=== PATIENT | female | born 1975 | race American Indian/Alaskan Native ===

== ENCOUNTER 2019-01-14 07:13 | Day surgery (SDC) | payer MEDICARE ==
[~2019-01-14 07:13] MED LIST: BUPIVACAINE-EPINEPHRINE/PF 0.5%-1:200,000 (30 ML) VIAL INFILTRATI ONE; HEPARIN 10,000 UNITS/10 ML VIAL IV ONE; LIDOCAINE 1%/EPINEPHRINE 1:100,000 VIAL (20 ML) INFILTRATI ONE; SODIUM BICARBONATE 2 MEQ/2 ML SYRINGE IV ONE; SODIUM CHLORIDE 0.9% 500 ML IVPB IRRIGATION ONE
[2019-01-14] MEDS ORDERED: HEPARIN 10,000 UNITS/10 ML VIAL ONE (07:47)
[2019-01-14] MEDS ORDERED: LIDOCAINE 1%/EPINEPHRINE 1:100,000 VIAL (20 ML) INFILTRATI ONE (07:48)
[2019-01-14] MEDS ORDERED: SODIUM CHLORIDE 0.9% 500 ML 500 ML ONE (07:48)
[2019-01-14] MEDS ORDERED: BUPIVACAINE-EPINEPHRINE/PF 0.5%-1:200,000 (10 ML) VIAL INFILTRATI ONE (07:49)
[2019-01-14] MEDS ORDERED: SODIUM BICARBONATE 2 MEQ/2 ML SYRINGE ONE (07:49)
--- NOTE | 2019-01-14 07:51 | Anesthesia Consultation ---
Anesthesia Consult and Med Hx Date of service: 01/14/19 - Airway Anesthetic Teeth Evaluation: Good, Caps ROM Head & Neck: Adequate Mental/Hyoid Distance: Adequate Mallampati Class: Class II Intubation Access Assessment: Probably Good - Pre-Operative Health Status ASA Pre-Surgery Classification: ASA3 Proposed Anesthetic Plan: General - Pulmonary Hx Smoking: No Hx Sleep Apnea: No - Cardiovascular System Hx Hypertension: Yes Hx Heart Attack/AMI: No (Had negative cardiac w/u approx 3 months ago) Hx Heart Murmur: Yes (??) - Central Nervous System Hx Psychiatric Problems: No - Endocrine Hx Renal Disease: Yes (M-W-. Last HD yesterday) Hx End Stage Renal Disease: Yes (VAS CATH OR PERMACATH ???) - Hematic Hx Anemia: No Hx Sickle Cell Disease: No - Other Systems Hx Alcohol Use: Yes (OCC. WINE) Hx Substance Use: No Hx Cancer: No
--- NOTE | 2019-01-14 07:53 | Anesthesia Day of Surgery ---
Anesthesia Day of Surgery - Day of Surgery Patient Examined: Yes Patient H&P Reviewed: Yes Patient is NPO: Yes Beta Blockers: Yes
[2019-01-14] MEDS ORDERED: SODIUM CHLORIDE 0.9% 1000 ML 1,000 ML IV SCH (08:00)
[2019-01-14] MEDS ORDERED: ONDANSETRON 4 MG/2 ML INJ IV PRN (08:00)
[2019-01-14] MEDS ORDERED: ceFAZolin/STERILE WATER 2 GM/20 ML SYRINGE IV NR (09:30)
[2019-01-14] MEDS ORDERED: fentaNYL 100 MCG/2 ML INJ ONE (10:25)
[2019-01-14] MEDS ORDERED: PROPOFOL 200 MG/20 ML VIAL IV ONE (10:25)
[2019-01-14] MEDS ORDERED: LIDOCAINE MPF (2%) 20 MG/1 ML VIAL 5 ML ONE (10:26)
[2019-01-14] MEDS ORDERED: ONDANSETRON 4 MG/2 ML INJ ONE (10:26)
[2019-01-14] MEDS ORDERED: dexAMETHasone 20 MG/5 ML VIAL ONE (10:26)
[2019-01-14] MEDS ORDERED: HEPARIN 10,000 UNITS/10 ML VIAL IV ONE (11:42)
[2019-01-14] MEDS ORDERED: SODIUM CHLORIDE 0.9% 500 ML IVPB IRRIGATION ONE (11:42)
[2019-01-14] MEDS ORDERED: THROMBIN (RECOMBINANT) 5,000 UNIT VIAL TP ONE ×2 (12:15→12:17)
[2019-01-14] MEDS ORDERED: GELATIN SPONGE SIZE 100 TP ONE ×2 (12:15→12:17)
[2019-01-14] MEDS ORDERED: PROTAMINE SULFATE 50 MG/5 ML INJ IV ONE (12:41)
[2019-01-14] MEDS ORDERED: PROTAMINE SULFATE 50 MG/5 ML INJ ONE (12:42)
[2019-01-14] MEDS ORDERED: ePHEDrine SULFATE 50 MG/1 ML INJ ONE (12:51)
--- NOTE | 2019-01-14 13:09 | Post Operative Note ---
Pre-op diagnosis: ESRD Post-op diagnosis: same Procedure: Right Arm AV Graft Insertion Anesthesia: GETA Surgeon: CAMI MOLINA Estimated blood loss: other (25ml) Pathology: none Condition: stable Disposition: PACU
--- NOTE | 2019-01-14 13:13 | Short Stay Summary ---
Short Stay Documentation Date of service: 01/14/19 - History H&P: obtained from office Past Medical History: ESRD - Allergies and Medications Current Medications: Allergies No Known Allergies Allergy (Unverified 01/11/19 13:04) Home Medications Medication Instructions Recorded Confirmed Last Taken Type Medroxyprogesterone Acetate 1 syr IM [id number] 01/11/19 01/14/19 10/26/18 09:00 History carvediloL [Coreg] 12.5 mg PO BID 01/11/19 01/14/19 01/14/19 08:00 History oxyCODONE /ACETAMINOPHEN 10 mg PO PRN 01/11/19 01/11/19 Unknown History Active Medications Cefazolin Sodium (Ancef/Sterile Water 2 Gm/20 Ml) 2 gm IV PREOP NR Stop: 01/14/19 20:00 Fentanyl (Sublimaze) 50 mcg IV Q5MIN PRN PRN Reason: Pain , Severe (7-10) Stop: 01/14/19 17:00 Sodium Chloride (Nacl 0.9% 1000 Ml) 1,000 mls @ 42 mls/hr IV DIRECT OLIVER Last Admin: 01/14/19 09:05 Dose: 42 mls/hr Documented by: Ondansetron HCl (Zofran) 4 mg IV ONCE PRN PRN Reason: Nausea And Vomiting Stop: 01/14/19 20:00 Oxycodone HCl (Roxicodone) 5 mg PO Q4H PRN PRN Reason: Pain, Moderate (4-6) - Physical exam General appearance: no acute distress Extremities: no ischemia - Hospital course Hospital course: the patient was taken to the operating room and had a right arm av graft insertion performed. please refer to the operative note concerning details of the procedure. the patient tolerated the procedure well and was discharged home in stable condition. - Disposition Condition at discharge: Stable Disposition: DC-01 TO HOME OR SELFCARE - Discharge Diagnoses (1) ESRD (end stage renal disease) Status: Acute Short Stay Discharge Plan Follow up with: TASHA CONTRERAS MD [Primary Care Provider] - 7 Days
[2019-01-14] MEDS: fentaNYL 100 MCG/2 ML INJ IV PRN ×2 (13:20→13:33)
--- NOTE | 2019-01-14 13:41 | Operative Report ---
STAFF SURGEON: Dr. Eric Henry. PREOPERATIVE DIAGNOSIS: End-stage renal disease. POSTOPERATIVE DIAGNOSIS: End-stage renal disease. PROCEDURE PERFORMED: Right arm AV graft insertion. COMPLICATIONS: None. ESTIMATED BLOOD LOSS: 25 mL. ANESTHESIA: General. INDICATIONS FOR PROCEDURE: This is a 43-year-old female with end-stage renal disease, on hemodialysis via left arm AV fistula that over the years, had issues with significant aneurysmal degeneration and requiring the patient to require new access. The patient did not want catheter insertion and elected to undergo a new access in the subsequent arm. The patient was explained the risks, benefits and alternatives of procedure, expressed understanding and wished to proceed. DESCRIPTION OF PROCEDURE: After appropriate consent was obtained, the patient was brought back to the operating room and placed on the operating table in supine position with the right arm extended. The patient was given appropriate medication for general anesthesia. The right arm was prepped and draped in sterile fashion with ChloraPrep. Appropriate preoperative antibiotics were administered. Appropriate timeout was performed indicating the correct patient, procedure and site of procedure. We then began the operation by making a longitudinal incision in the antecubital fossa. This was carried through the subcutaneous tissue with a combination of blunt dissection and electrocautery. Dissection was continued through the bicipital aponeurosis and allowed to expose the brachial artery, which was found to be suitable for arterial inflow. This was exposed for appropriate distance both proximally and distally. I then proceeded to make a transverse incision near the axilla and this was carried through subcutaneous tissue with a combination of blunt dissection and electrocautery. Dissection was continued through the fascia overlying the axillary neurovascular bundle. The axillary vein was identified and was a little small, but was thought to be suitable for venous outflow. We then proceeded to expose the vein, both proximally and distally for appropriate distance. A subcutaneous tunnel was then made between the 2 incision sites bringing through a 4-7 mm Propaten graft. The patient was given 5000 units of unfractionated heparin. After appropriate timeout elapsed, the vascular clamps were placed on the brachial artery, both proximally and distally. A longitudinal arteriotomy was made with a #11 blade and extended with Claudio scissors. The graft was appropriately spatulated and an end-to-side anastomosis was performed with a running 6-0 Prolene suture. Once complete, flow was reestablished through the graft, we had a nice pulsatile flow. The graft was cut to appropriate length. Vascular clamps were placed on the axillary vein, both proximally and distally. The graft was appropriately spatulated and then proceeded to perform the end-to-side anastomosis with a running 5-0 Prolene suture. Once complete, flow was established through the graft, we had a nice palpable thrill. The patient was given protamine for heparinization reversal. We then looked to obtain hemostasis along our suture lines and we obtained with hemostatic agents. Once we were satisfied with hemostasis, we then proceeded to close the wounds with deep subcutaneous layer with interrupted 3-0 PDS and the skin was approximated with mike. Appropriate dressing was placed. The patient tolerated the procedure well, emerged from the general anesthesia, was extubated in the operating room and sent to recovery in stable condition. All sponge, instrument and needle counts were correct at completion of the operation. JOB# [id number] [facility]
[2019-01-14] MEDS ORDERED: oxyCODONE 5 MG TAB PO PRN (14:00)
[2019-01-14 14:13] VITALS: BP 154/86
--- NOTE | 2019-01-14 21:30 | Post Anesthesia Evaluation ---
- Post Anesthesia Evaluation Patient Participated: Yes Airway Patent: Yes Stable Respiratory Function: Yes Nausea/Vomiting: No Temp > 96.8F: Yes Pain Manageable: Yes Adequeate Hydration: Yes Anesthesia Complications: No Block Receding Appropriately: Not Applicable Patient on Ventilator: No
== END 2019-01-14 14:45 | disposition home or self-care (01) ==
LOC: OR 07:13
PROVIDERS: ATTEND Surgery Vascular Surgery
DX: I12.0 Hypertensive chronic kidney disease with stage 5 chronic kidney disease or end stage renal disease (principal); N18.6 End stage renal disease; G43.909 Migraine, unspecified, not intractable, without status migrainosus; E78.00 Pure hypercholesterolemia, unspecified; Z79.899 Other long term (current) drug therapy; Z99.2 Dependence on renal dialysis; Z72.89 Other problems related to lifestyle; Z98.890 Other specified postprocedural states
CPT/HCPCS: 36830; 82803; A4649; C1768; J1100; J1644; J2405; J2704; J2720; J3010; J7030; J7040

== ENCOUNTER 2019-03-04 06:03 | Day surgery (SDC) | payer MEDICARE ==
[2019-03-04] MEDS ORDERED: SODIUM CHLORIDE 0.9% 1000 ML 1,000 ML IV SCH (06:45)
[2019-03-04] MEDS ORDERED: BACTERIOSTATIC SODIUM CHLORIDE 0.9% 30 ML VIAL INFILTRATI ONE (06:49)
[2019-03-04] MEDS ORDERED: ceFAZolin/STERILE WATER 2 GM/20 ML SYRINGE IV NR (07:00)
--- NOTE | 2019-03-04 07:35 | Anesthesia Consultation ---
Anesthesia Consult and Med Hx Date of service: 03/04/19 - Airway Anesthetic Teeth Evaluation: Good ROM Head & Neck: Adequate Mental/Hyoid Distance: Adequate Mallampati Class: Class II Intubation Access Assessment: Good - Pulmonary Exam CTA: Yes - Cardiac Exam Cardiac Exam: RRR - Pre-Operative Health Status ASA Pre-Surgery Classification: ASA3 Proposed Anesthetic Plan: General - Cardiovascular System Hx Hypertension: Yes Hx Heart Murmur: Yes - Central Nervous System Hx Psychiatric Problems: No - Endocrine Hx Renal Disease: Yes Hx End Stage Renal Disease: Yes - Other Systems Hx Alcohol Use: Yes (OCC. WINE) Hx Cancer: No
--- NOTE | 2019-03-04 07:35 | Anesthesia Day of Surgery ---
Anesthesia Day of Surgery - Day of Surgery Patient Examined: Yes Patient H&P Reviewed: Yes Patient is NPO: Yes
[2019-03-04] MEDS ORDERED: HEPARIN 10,000 UNITS/10 ML VIAL ONE (07:40)
[2019-03-04] MEDS ORDERED: GELATIN SPONGE SIZE 100 TP ONE (07:41)
[2019-03-04] MEDS ORDERED: SODIUM CHLORIDE 0.9% 250ML 250 ML ONE (07:41)
[2019-03-04] MEDS ORDERED: THROMBIN (RECOMBINANT) 5,000 UNIT VIAL TP ONE ×2 (07:42→08:47)
[2019-03-04] MEDS ORDERED: PROTAMINE SULFATE 50 MG/5 ML INJ ONE (07:42)
[2019-03-04] MEDS ORDERED: FAMOTIDINE 20 MG TAB PO NR (08:00)
[2019-03-04] MEDS ORDERED: MIDAZOLAM 2 MG/2 ML INJ IV NR (08:00)
[2019-03-04] MEDS ORDERED: LIDOCAINE MPF (2%) 20 MG/1 ML VIAL 5 ML ONE (08:05)
[2019-03-04] MEDS ORDERED: PROPOFOL 200 MG/20 ML VIAL IV ONE (08:06)
[2019-03-04] MEDS ORDERED: fentaNYL 100 MCG/2 ML INJ ONE (08:06)
[2019-03-04] MEDS ORDERED: HEPARIN 10,000 UNITS/10 ML VIAL IV ONE (08:46)
[2019-03-04] MEDS ORDERED: SODIUM CHLORIDE 0.9% 250 ML IVPB IV ONE (08:47)
[2019-03-04] MEDS ORDERED: SODIUM CHLORIDE 0.9% IRR 1,500 ML BOTTLE IR ONE (08:48)
[2019-03-04] MEDS ORDERED: oxyCODONE /ACETAMINOPHEN 5-325MG TAB PO PRN (09:44)
--- NOTE | 2019-03-04 09:44 | Post Operative Note ---
Pre-op diagnosis: ESRD Post-op diagnosis: same Procedure: Left Arm AV Fistula Excision Anesthesia: GETA Surgeon: CAMI MOLINA Estimated blood loss: other (25ml) Pathology: none Condition: stable Disposition: PACU
[2019-03-04] MEDS ORDERED: ONDANSETRON 4 MG/2 ML INJ ONE (09:45)
[2019-03-04] MEDS ORDERED: dexAMETHasone 20 MG/5 ML VIAL ONE (09:45)
--- NOTE | 2019-03-04 09:48 | Short Stay Summary ---
Short Stay Documentation Date of service: 03/04/19 - History H&P: obtained from office Past Medical History: ESRD - Allergies and Medications Current Medications: Allergies tramadol Allergy (Verified 03/04/19 06:45) Itching Home Medications Medication Instructions Recorded Confirmed Last Taken Type Medroxyprogesterone Acetate 1 syr IM [id number] 01/11/19 03/04/19 01/24/19 History carvediloL [Coreg] 12.5 mg PO BID 01/11/19 03/04/19 03/04/19 07:15 History oxyCODONE [roxiCODONE] 5 mg PO Q4H PRN #20 tablet 01/14/19 03/04/19 02/18/19 Rx Active Medications Cefazolin Sodium (Ancef/Sterile Water 2 Gm/20 Ml) 2 gm IV PREOP NR Stop: 03/04/19 23:59 Famotidine (Pepcid) 20 mg PO PREOP NR Stop: 03/04/19 16:00 Last Admin: 03/04/19 07:48 Dose: 20 mg Documented by: Sodium Chloride (Nacl 0.9% 1000 Ml) 1,000 mls @ 42 mls/hr IV DIRECT OLIVER Last Admin: 03/04/19 07:00 Dose: 42 mls/hr Documented by: Midazolam HCl (Versed) 2 mg IV PREOP NR Stop: 03/04/19 23:59 Last Admin: 03/04/19 07:48 Dose: 2 mg Documented by: - Physical exam General appearance: no acute distress Lungs: Normal air movement Extremities: no ischemia - Hospital course Hospital course: the patient was taken to the operating room and had a left arm av fistula e xcision performed. please refer to the operative note concerning details of the procedure. the patient tolerated the procedure well and was discharged well in stable condition. - Disposition Condition at discharge: Stable Disposition: DC-01 TO HOME OR SELFCARE - Discharge Diagnoses (1) ESRD (end stage renal disease) on dialysis Status: Acute Short Stay Discharge Plan Follow up with: TASHA CONTRERAS MD [Primary Care Provider] - 7 Days
[2019-03-04] MEDS: HYDROmorphone 1 MG/1 ML INJ IV PRN ×2 (10:05→10:15)
[2019-03-04] MEDS ORDERED: HYDROmorphone 1 MG/1 ML INJ ONE (10:06)
--- NOTE | 2019-03-04 10:07 | Operative Report ---
STAFF SURGEON: Dr. Eric Henry. PREOPERATIVE DIAGNOSIS: End-stage renal disease. POSTOPERATIVE DIAGNOSIS: End-stage renal disease. PROCEDURE PERFORMED: Left arm AV fistula excision. COMPLICATIONS: None. ESTIMATED BLOOD LOSS: 25 mL. ANESTHESIA: General. INDICATIONS FOR PROCEDURE: This is a 43-year-old female with end-stage renal disease, on hemodialysis via right arm AV graft. She also has a left arm AV fistula that is still patent. 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 Therefore, it was felt appropriate to bring the patient to the operating room for excision of this pseudoaneurysm. The patient was explained the risks, benefits and alternatives of procedure, expressed understanding and wished to proceed. DESCRIPTION OF PROCEDURE: After appropriate consent was obtained, the patient was brought back to the operating room and placed on the operating table in supine position with the left arm extended. The patient was given appropriate medication for general anesthesia, had LMA placed without difficulty. Left arm was prepped and draped in usual sterile fashion with ChloraPrep. Appropriate preoperative antibiotics were administered. Appropriate timeout was performed indicating the correct patient, procedure, and site of the procedure. I then began the operation by making an elliptical incision in the left upper arm around the aneurysmal portion of the AV fistula. This was carried through the subcutaneous tissue with a combination of blunt dissection and electrocautery. The fistula was dissected off the bed of the biceps muscle and then proceeded to place hemostat clamps on both arterial and venous sides of the fistula. This was then transected. It was sent off the field to be discarded. We then proceeded to close both stumps with a running 4-0 Prolene sutures in 2 layers with horizontal mattress and running suture. Once complete, the clamps were removed. We then looked to obtain hemostasis along the wound bed, was obtained with electrocautery and assess for hemostasis. The wound bed was irrigated with saline solution and then proceeded to close the wound with a deep subcutaneous layer with interrupted 3-0 PDS and the skin was approximated with mike. Appropriate dressing was placed. The patient tolerated the procedure well, emerged from the general anesthesia, had LMA removed, and was sent to recovery in stable condition. All the sponges, instrument and needle counts were correct at completion of the operation. JOB# [id number] [facility]
[2019-03-04] MEDS ORDERED: ONDANSETRON 4 MG/2 ML INJ IV PRN (10:24)
[2019-03-04 11:18] VITALS: BP 158/78
== END 2019-03-04 11:25 | disposition home or self-care (01) ==
LOC: OR 06:03
PROVIDERS: ATTEND Surgery Vascular Surgery
DX: I12.0 Hypertensive chronic kidney disease with stage 5 chronic kidney disease or end stage renal disease (principal); N18.6 End stage renal disease; G43.909 Migraine, unspecified, not intractable, without status migrainosus; E78.00 Pure hypercholesterolemia, unspecified; T82.590A Other mechanical complication of surgically created arteriovenous fistula, initial encounter; Z79.899 Other long term (current) drug therapy; Z88.8 Allergy status to other drugs, medicaments and biological substances; Z99.2 Dependence on renal dialysis; Z72.89 Other problems related to lifestyle; Z98.890 Other specified postprocedural states; Y83.8 Other surgical procedures as the cause of abnormal reaction of the patient, or of later complication, without mention of misadventure at the time of the procedure; Y92.89 Other specified places as the place of occurrence of the external cause
CPT/HCPCS: 35011; 36415; 82803; 84703; A4649; J0690; J1100; J1170; J1644; J2250; J2405; J2704; J3010; J7030; J7050; J2720

== ENCOUNTER 2019-04-14 14:39 | Emergency (ER) | payer MEDICARE ==
--- NOTE | 2019-04-14 15:29 | Emergency Department Report ---
HPI - General Chief Complaint: Arrhythmia/Palpitations Time Seen by Provider: 04/14/19 15:04 - HPI HPI: 43-year-old -[place] female presents to the emergency department via EMS from her vascular surgeon's office with a complaint of a fast heart rate and possible SVT. She was at the office of Dr. Henry getting her right upper extremity dialysis access declotted. She was given some fentanyl and propofol and her heart rate went into the 150s and 160s. She has a history of SVT and apparently the patient was given 2 different doses of adenosine 6 mg. This caused her heart rate to go up into the 180s so EMS was called. The patient was then given 15 mg of labetalol with some transient decrease but her heart rate went back to about the 150s. She has end-stage renal disease on hemodialysis on Friday/Friday/Friday and did complete dialysis this morning. Her office coordinator is Dr. Lisa Macedo. Patient denies any shortness of breath or chest pain but does say that her chest "feels funny." ED Past Medical Hx - Past Medical History Hx Hypertension: Yes Hx Renal Disease: Yes (dialysis) Hx Headaches / Migraines: Yes ( MIGRAINES) Hx HIV: No - Surgical History Additional Surgical History: av graft - Social History Smoking Status: Former Smoker Substance Use Type: None - Medications Home Medications: Home Medications Medication Instructions Recorded Confirmed Last Taken Type Medroxyprogesterone Acetate 1 syr IM [id number] 01/11/19 03/04/19 01/24/19 History oxyCODONE /ACETAMINOPHEN [Percocet 2 tab PO Q6HR PRN #24 tablet 03/04/19 Unk nown Rx 5/325 mg] carvediloL [Coreg] 12.5 mg PO BID #60 04/14/19 Unknown Rx ED Review of Systems ROS: Stated complaint: SVT Other details as noted in HPI Comment: All other systems reviewed and negative Constitutional: denies: chills, fever Eyes: denies: eye pain, vision change ENT: denies: ear pain, throat pain Respiratory: denies: cough, shortness of breath Cardiovascular: palpitations. denies: edema Gastrointestinal: denies: abdominal pain, vomiting Genitourinary: denies: dysuria, discharge Musculoskeletal: denies: back pain, arthralgia Skin: denies: rash, lesions Neurological: denies: headache, weakness Physical Exam - Physical Exam Vital Signs: Vital Signs 04/14/19 14:53 Temperature 98.5 F Pulse Rate 155 H Respiratory 18 Rate Blood Pressure 162/90 O2 Sat by Pulse 100 Oximetry Physical Exam: GENERAL: The patient is well-developed well-nourished. HENT: Normocephalic. Atraumatic. Patient has moist mucous membranes. EYES: Extraocular motions are intact. NECK: Supple. Trachea is midline. CHEST/LUNGS: Clear to auscultation. There is no respiratory distress noted. There is a left-sided chest permacath. HEART/CARDIOVASCULAR: Regular. There is severe tachycardia with heart rate in 150s to 160s. There is no murmur. ABDOMEN: Abdomen is soft, nontender. Patient has normal bowel sounds. There is no abdominal distention. SKIN: Skin is warm and dry. NEURO: The patient is awake, alert, and oriented. The patient is cooperative. The patient has no focal neurologic deficits. Normal speech. MUSCULOSKELETAL: There is no tenderness or deformity. There is no evidence of acute injury. ED Course Vital Signs 04/14/19 14:53 Temperature 98.5 F Pulse Rate 155 H Respiratory 18 Rate Blood Pressure 162/90 O2 Sat by Pulse 100 Oximetry - Consultations Consultation #1: 04/14/19 18:59 I spoke with the information technology administrator on-call, Dr. Gaitan, regarding the patient's presentation with her SVT and her conversion back to a sinus rhythm with normal rate after calcium channel keith. He recommends the patient go up on her Coreg to 12.5 mg twice daily and she is safe for discharge home but should call for follow-up with her information technology administrator in the morning. ED Medical Decision Making - Lab Data Result diagrams: 04/14/19 16:15 04/14/19 16:15 - EKG Data -: EKG Interpreted by Me EKG shows normal: sinus rhythm, axis (Right axis deviation), intervals, QRS complexes (RVH), ST-T waves (T wave inversions to the anterior leads) Rate: tachycardia (165 bpm) - EKG Data When compared to previous EKG there are: previous EKG unavailable Interpretation: other 04/14/19 18:59 Repeat EKG shows sinus rhythm, right axis deviation, RVH, T wave inversions to anterior leads, rate of 90 bpm - Radiology Data Radiology results: image reviewed interpreted by me: Chest x-ray does not show any acute process. There are no pleural effusions, obvious pneumonia and there is no pneumothorax. - Medical Decision Making This patient presented to the emergency department with tachycardia after she received some medication for a procedure in the vascular surgeons office. At that time it was refractory to 6 mg of adenosine and apparently a small dose of labetalol. The patient came into the emergency department with a heart rate still in the 150s to 160s. EKG showed sinus tachycardia but it may have been SVT. The patient says that she felt a "strange sensation" in her chest but otherwise denied any actual chest pain, shortness of breath. Chest x-ray did not show any pleural effusions, pneumonia, pneumothorax, or any other acute process. The IV team was able to place a left antecubital fossa 20-gauge IV and once this was established the patient was given 12 mg of adenosine. Her heart rate immediately went down to about 100 but went back up to about 160 to 160 bpm within a few minutes of the medication given. At this point the patient was given a dose of Cardizem, 20 mg, and the heart rate went down into the 90s. The patient's heart rate remained within normal limits for the rest of her ED course. Her labs were unremarkable except for the anemia of chronic kidney disease and her renal insufficiency consistent with her end-stage renal disease on dialysis. The patient was reevaluated multiple times over multiple hours and says she is feeling well and there has been no return of her tachycardia or "strange sensation." I spoke with the information technology administrator on-call who recommended going up on her Coreg to 12.5 mg twice daily and to follow-up with her information technology administrator in the morning. The patient will return to the emergency department with any return of her symptoms, or with any acute distress. - Differential Diagnosis SVT, atrial flutter, electrolyte abnormalities Critical Care Time: Yes Critical care time in (mins) excluding proc time.: 35 Critical care attestation.: If time is entered above; I have spent that time in minutes in the direct care of this critically ill patient, excluding procedure time. Due to the immediate potential for life-threatening deterioration due to underlying cardiac disease/process, I spent 35 minutes of critical care time with the patient. Critical care time included her initial evaluation, multiple re-evaluations, ordering and interpretation of labs and imaging, ordering and administration of adenosine and calcium channel keith for rate control, multiple discussions with the patient and her family. Critical Care Time: 35 minutes ED Disposition Clinical Impression: ESRD (end stage renal disease) on dialysis, SVT (supraventricular tachycardia) Hypertension Qualifiers: Hypertension type: essential hypertension Qualified Code(s): I10 - Essential (primary) hypertension Disposition: TO HOME OR SELFCARE Is pt being admited?: No Condition: Stable Instructions: Supraventricular Tachycardia (ED), Hypertension (ED) Additional Instructions: Please call your information technology administrator in the morning for follow-up regarding the SVT. Return to the emergency department immediately with any return of your fast heart rate, palpitations, any development of chest pain or shortness of breath. Continue with your normal dialysis regimen. Please follow-up with your vascular surgeon regarding your right upper extremity vascular access. Prescriptions: carvediloL [Coreg] 12.5 mg PO BID #60 Referrals: CAMI HENRY MD [Staff Physician] - 2-3 Days Historic Site Administrator, Your [Other] - [facility] Time of Disposition: 19:03
--- NOTE | 2019-04-14 16:24 | XRay Report ---
CHEST 1 VIEW INDICATION: palpitations. COMPARISON: None FINDINGS: SUPPORT DEVICES: [id number] catheters tip in the superior vena cava right atrial junction HEART / MEDIASTINUM: No significant abnormality. LUNGS / PLEURA: No significant pulmonary or pleural abnormality. No pneumothorax. ADDITIONAL FINDINGS: IMPRESSION: 1. No acute cardiopulmonary disease Signer Name: Chriss Johnson MD Signed: 04/14/2019 4:20 PM Workstation Name: [id number]
[2019-04-14] MEDS ORDERED: ADENOSINE 6 MG/2 ML INJ IV ONE (16:33)
[2019-04-14] MEDS ORDERED: dilTIAZem 25 MG/5 ML INJ IV ONE (16:51)
[2019-04-14 17:14] LABS: Basophils % (Auto) 0.8 % (0.0-1.8); Eosinophils # (Auto) 0.4 K/mm3 (0.0-0.4); Eosinophils % (Auto) 6.5 % (0.0-4.3); Hematocrit 25.1 % (30.3-42.9); Hemoglobin 8.2 gm/dl (10.1-14.3); Lymphocytes # (Auto) 1.3 K/mm3 (1.2-5.4); Lymphocytes % (Auto) 20.5 % (13.4-35.0); Mean Corpuscular HGB Conc 33 % (30-34); Mean Corpuscular Volume 98 fl (79-97); Monocytes # (Auto) 0.5 K/mm3 (0.0-0.8); Monocytes % (Auto) 7.5 % (0.0-7.3); Platelet Count 254 K/mm3 (140-440); Red Blood Count 2.58 M/mm3 (3.65-5.03); Red Cell Distribution Width 17.9 % (13.2-15.2)
[2019-04-14 17:24] LABS: INR 1.18 (0.87-1.13)
[2019-04-14 17:36] VITALS: BP 155/93
[2019-04-14] MEDS ORDERED: MORPHINE 4 MG/1 ML INJ IV ONE (17:50)
[2019-04-14 18:20] LABS: BUN/Creatinine Ratio 2; Blood Urea Nitrogen 13 mg/dL (7-17); Calcium 9.3 mg/dL (8.4-10.2)
[2019-04-14 18:21] LABS: Albumin 3.3 g/dL (3.9-5); Hemolysis Index 4
[2019-04-14 18:33] LABS: Alanine Aminotransferase < 5 units/L (7-56)
[2019-04-14] MEDS ORDERED: carvediloL 6.25 MG TAB PO ONE (18:50)
== END 2019-04-14 19:33 | disposition home or self-care (01) ==
LOC: ED 14:39
DX: I13.11 Hypertensive heart and chronic kidney disease without heart failure, with stage 5 chronic kidney disease, or end stage renal disease (principal); N18.6 End stage renal disease; I47.1 Supraventricular tachycardia; G43.909 Migraine, unspecified, not intractable, without status migrainosus; Z87.891 Personal history of nicotine dependence; Z79.899 Other long term (current) drug therapy; Z88.6 Allergy status to analgesic agent; Z99.2 Dependence on renal dialysis
CPT/HCPCS: 36415; 71045; 80053; 84443; 85025; 85610; 93005; 93010; 96374; 96375; 99285; J0153

== ENCOUNTER 2019-04-22 09:02 | Day surgery (SDC) | payer MEDICARE ==
[2019-04-22] MEDS ORDERED: HEPARIN/NS 5000 UNIT/500ML 1,000 ML IR ONE (10:14)
[2019-04-22] MEDS ORDERED: MIDAZOLAM 2 MG/2 ML INJ ONE (10:14)
[2019-04-22] MEDS ORDERED: HEPARIN 10,000 UNITS/10 ML VIAL ONE (10:14)
[2019-04-22] MEDS ORDERED: fentaNYL 100 MCG/2 ML INJ ONE (10:15)
[2019-04-22 12:55] LABS: Calcium 8.5 mg/dL (8.4-10.2)
[2019-04-22] MEDS ORDERED: WATER FOR INJ Sterile (PF) 10 ML ONE (13:29)
[2019-04-22] MEDS: LIDOCAINE (2%) 20 MG/1 ML VIAL 20 ML MDV INFILTRATI ONE ×2 (13:58→14:03)
[2019-04-22] MEDS: ALTEPLASE 2 MG INJ ONE ×2 (13:58→14:19)
--- NOTE | 2019-04-22 14:55 | Post Operative Note ---
Date of procedure: 04/22/19 Pre-op diagnosis: ESRD Post-op diagnosis: same Findings: 99% stenosis of the venous anastomosis with thrombosed av graft, no central venous stenosis and no stenosis noted at the arterial anastomosis Procedure: 1. Ultrasound access of right arm AV graft x 2 2. Right Arm AV Graft Percutaneous Thrombectomy 3. Right Upper Extremity Angiogram with 1st order catheter placement Anesthesia: MAC, local Surgeon: CAMI MOLINA Estimated blood loss: minimal Pathology: none Condition: stable Disposition: observation
[2019-04-22] MEDS ORDERED: oxyCODONE /ACETAMINOPHEN 5-325MG TAB PO PRN (14:58)
--- NOTE | 2019-04-22 14:58 | Short Stay Summary ---
Short Stay Documentation Date of service: 04/22/19 Narrative H&P: 43yo female with ESRD on HD presents with thrombosed right arm av graft. patient scheduled to undergo attempted percutaneous thrombectomy. - History Past Medical History: ESRD - Allergies and Medications Current Medications: Allergies tramadol Allergy (Verified 03/04/19 06:45) Itching Home Medications Medication Instructions Recorded Confirmed Last Taken Type Medroxyprogesterone Acetate 1 syr IM [id number] 01/11/19 04/22/19 01/24/19 History oxyCODONE /ACETAMINOPHEN [Percocet 2 tab PO Q6HR PRN #24 tablet 03/04/19 04/22/19 04/20/19 Rx 5/325 mg] 1 tab carvediloL [Coreg] 12.5 mg PO BID #60 04/14/19 04/22/19 04/21/19 Rx 12.5mg cloNIDine [Catapres] 0.1 mg PO TID PRN 04/22/19 04/22/19 04/21/19 History 0.1mg - Physical exam General appearance: no acute distress Lungs: Normal air movement Heart: Regular rate Extremities: no ischemia - Hospital course Hospital course: the patient was taken to the label printer and had a right arm percutanous thrombectomy performed. please refer to the operative note concerning details of the procedure. the patient tolerated the procedure well and was discharged home in stable condition. - Disposition Condition at discharge: Stable Disposition: DC-01 TO HOME OR SELFCARE - Discharge Diagnoses (1) ESRD (end stage renal disease) on dialysis Status: Acute Short Stay Discharge Plan Follow up with: PRIMARY CARE, [Primary Care Provider] - 7 Days
[2019-04-22 15:50] VITALS: BP 158/80
--- NOTE | 2019-04-22 20:40 | Operative Report ---
STAFF SURGEON: Eric Henry MD PREOPERATIVE DIAGNOSIS: End-stage renal disease. POSTOPERATIVE DIAGNOSIS: End-stage renal disease. PROCEDURES PERFORMED: 1. Ultrasound access of right arm AV graft x 2. 2. Right arm AV graft percutaneous thrombectomy. 3. Right upper extremity angiogram with first order catheter placement. 4. Monitored conscious sedation for 30 minutes. COMPLICATIONS: None. ESTIMATED BLOOD LOSS: Less than 10 mL. ANESTHESIA: Local MAC. ANGIOGRAPHIC FINDINGS: The patient had a 99% stenosis at the venous anastomosis with a thrombosed AV graft. No central venous stenosis and no stenosis was noted at the arterial anastomosis. 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 The patient then after discharge from the rehab facility presented back at our office for an evaluation to salvage her AV graft. It was felt that the graft could be salvaged and the patient was explained the risks, benefits and alternatives of procedure, expressed understanding and wished to proceed. DESCRIPTION OF PROCEDURE: After appropriate consent was obtained, the patient was brought back to the aquatic laborer, placed on table in supine position with the right arm extended. The patient's right arm was prepped and draped in the usual sterile fashion with ChloraPrep. Appropriate timeout was performed indicating the correct patient, procedure, site of procedure. We then began the intervention by obtaining percutaneous access of the AV graft near the antecubital fossa towards the venous anastomosis using a micropuncture technique under ultrasound guidance. Once we obtained access, needle was exchanged for a micropuncture sheath using Seldinger technique. Then, I exchanged the micropuncture sheath for a 6-Kyrgyz sheath over a Bentson wire. Combination of a Bentson wire and a vertebral catheter were then advanced into the central venous system. The wire was removed. The catheter was then withdrawn with contrast being infused which demonstrated the findings noted above. We then proceeded to administer 5000 units of heparin, 1 mg of Versed and 50 mcg of fentanyl and then proceeded to lace the rest of the thrombosed graft with TPA. I then advanced the Bentson wire back into the central venous system. The catheter was removed. We then proceeded to obtain our second access of the AV graft near the axilla towards the arterial anastomosis, again used a micropuncture technique under ultrasound guidance. Once we obtained access, needle was exchanged for a micropuncture sheath using Seldinger technique and then this was upsized to a 5-Kyrgyz sheath over a stiff J wire, then with a combination of a vertebral catheter and Glidewire, these were advanced into the brachial artery. Once complete, a diagnostic angiogram was performed through the catheter, which demonstrated a widely patent brachial artery. We then proceeded to replace the Glidewire and the catheter was removed and then over the wire a Fermin catheter was then used by using negative suction to perform mechanical thrombectomy of the AV graft. Once complete, pulsatile flow was established in partial at the graft and the thrombosed fragments were discarded. We then proceeded ____ on the [place] wire from my initial access, the 8 x 80 [place] balloon and placed it across the venous anastomosis and thrombosed graft and proceeded to perform balloon angioplasty of the venous anastomosis and macerate the rest of the thrombosed graft. Once that was complete, some of the blood was discarded and then a completion angio was performed of the AV graft, which demonstrated that it was patent, but demonstrated still approximately 50% residual stenosis at the venous anastomosis and so an 8 x 4 [place] balloon was then brought on the field, placed across the venous anastomosis and insufflated the profile. Once complete, a completion angio was performed, demonstrated less than 10% residual stenosis across the venous anastomosis. Once that was complete, the vertebral catheter was then advanced back over the Glidewire towards the brachial artery. A diagnostic angiogram was performed through the vertebral catheter demonstrating the findings noted above and so all of our wires, catheters and sheaths were removed and the access sites were closed with a 3-0 nylon [id number] stitch. The patient had a palpable thrill, confirmed by Doppler. We then proceeded to place an appropriate dressing over the access site. The patient tolerated the procedure well, emerged from the conscious sedation and was sent to recovery in stable condition. JOB# [id number] [facility]
== END 2019-04-22 09:03 | disposition home or self-care (01) ==
LOC: CATHLABREC 09:02
PROVIDERS: ATTEND Surgery Vascular Surgery
DX: I12.0 Hypertensive chronic kidney disease with stage 5 chronic kidney disease or end stage renal disease (principal); N18.6 End stage renal disease; T82.868A Thrombosis due to vascular prosthetic devices, implants and grafts, initial encounter; I47.1 Supraventricular tachycardia; G43.909 Migraine, unspecified, not intractable, without status migrainosus; Z99.2 Dependence on renal dialysis; Z98.890 Other specified postprocedural states; Z72.89 Other problems related to lifestyle; Z79.899 Other long term (current) drug therapy; Z88.8 Allergy status to other drugs, medicaments and biological substances; Y83.8 Other surgical procedures as the cause of abnormal reaction of the patient, or of later complication, without mention of misadventure at the time of the procedure; Y92.89 Other specified places as the place of occurrence of the external cause
CPT/HCPCS: 36905; 80048; 99156; 99157; C1725; C1757; C1769; C1894; J1644; J2250; J2997; J3010; J1642; Q9967

== ENCOUNTER 2019-05-20 09:05 | Day surgery (SDC) | payer MEDICARE ==
[~2019-05-20 09:05] MED LIST changes: -BUPIVACAINE-EPINEPHRINE/PF 0.5%-1:200,000 (30 ML) VIAL INFILTRATI ONE; -HEPARIN 10,000 UNITS/10 ML VIAL IV ONE; -LIDOCAINE 1%/EPINEPHRINE 1:100,000 VIAL (20 ML) INFILTRATI ONE; -SODIUM BICARBONATE 2 MEQ/2 ML SYRINGE IV ONE; +SODIUM CHLORIDE 0.9% 1000 ML 1,000 ML ONE; -SODIUM CHLORIDE 0.9% 500 ML IVPB IRRIGATION ONE; +ceFAZolin/Water 2 GM/20 ML 2 GM/20 ML SYRINGE IV NR
[2019-05-20] MEDS ORDERED: BACTERIOSTATIC SODIUM CHLORIDE 0.9% 30 ML VIAL INFILTRATI ONE (09:06)
[2019-05-20] MEDS ORDERED: HEPARIN 10,000 UNITS/10 ML VIAL ONE (09:10)
[2019-05-20] MEDS ORDERED: SODIUM CHLORIDE 0.9% 500 ML 0 ML ONE (09:10)
[2019-05-20] MEDS ORDERED: PROTAMINE SULFATE 50 MG/5 ML INJ ONE (09:10)
[2019-05-20] MEDS ORDERED: THROMBIN (RECOMBINANT) 5,000 UNIT VIAL TP ONE ×2 (09:11→11:06)
[2019-05-20] MEDS ORDERED: SODIUM CHLORIDE 0.9% 200 ML ONE (09:24)
[2019-05-20] MEDS ORDERED: ONDANSETRON 4 MG/2 ML INJ IV PRN (09:25)
--- NOTE | 2019-05-20 09:26 | Anesthesia Day of Surgery ---
Anesthesia Day of Surgery - Day of Surgery Patient Examined: Yes Patient H&P Reviewed: Yes Patient is NPO: Yes
--- NOTE | 2019-05-20 09:29 | Anesthesia Consultation ---
Anesthesia Consult and Med Hx Date of service: 05/20/19 - Airway Anesthetic Teeth Evaluation: Good ROM Head & Neck: Adequate Mental/Hyoid Distance: Adequate Mallampati Class: Class II - Pre-Operative Health Status ASA Pre-Surgery Classification: ASA3 Proposed Anesthetic Plan: General - Pulmonary Hx Smoking: No Hx Sleep Apnea: No - Cardiovascular System Hx Hypertension: Yes Hx Heart Murmur: Yes - Central Nervous System Hx Seizures: Yes Hx Psychiatric Problems: No - Endocrine Hx Renal Disease: Yes (dialysis yesterday) Hx End Stage Renal Disease: Yes - Hematic Hx Anemia: Yes Hx Sickle Cell Disease: No - Other Systems Hx Alcohol Use: Yes (OCC. WINE) Hx Substance Use: No Hx Cancer: No - Additional Comments Anesthesia Medical History Comments: Here [id number]
[2019-05-20] MEDS ORDERED: SODIUM CHLORIDE 0.9% 1000 ML 1,000 ML IV SCH (09:30)
[2019-05-20] MEDS ORDERED: LIDOCAINE MPF (2%) 20 MG/1 ML VIAL 5 ML ONE (09:45)
[2019-05-20] MEDS ORDERED: dexAMETHasone 20 MG/5 ML VIAL ONE (09:45)
[2019-05-20] MEDS ORDERED: ONDANSETRON 4 MG/2 ML INJ ONE (09:45)
[2019-05-20] MEDS ORDERED: fentaNYL 100 MCG/2 ML INJ ONE (09:45)
[2019-05-20] MEDS ORDERED: propofoL 200 MG/20 ML VIAL IV ONE (09:46)
[2019-05-20] MEDS ORDERED: MIDAZOLAM 2 MG/2 ML INJ IV NR (10:00)
[2019-05-20 10:06] LABS: Calcium 8.3 mg/dL (8.4-10.2)
[2019-05-20 10:19] LABS: Basophils % (Auto) 0.5 % (0.0-1.8); Eosinophils # (Auto) 0.7 K/mm3 (0.0-0.4); Eosinophils % (Auto) 10.3 % (0.0-4.3); Hematocrit 35.3 % (30.3-42.9); Hemoglobin 11.1 gm/dl (10.1-14.3); Lymphocytes # (Auto) 0.9 K/mm3 (1.2-5.4); Lymphocytes % (Auto) 12.8 % (13.4-35.0); Mean Corpuscular HGB Conc 32 % (30-34); Mean Corpuscular Volume 92 fl (79-97); Monocytes # (Auto) 0.6 K/mm3 (0.0-0.8); Monocytes % (Auto) 8.6 % (0.0-7.3); Platelet Count 197 K/mm3 (140-440); Red Blood Count 3.83 M/mm3 (3.65-5.03); Red Cell Distribution Width 19.7 % (13.2-15.2)
[2019-05-20] MEDS ORDERED: SODIUM CHLORIDE 0.9% 100 ML IVPB IV ONE (11:05)
[2019-05-20] MEDS ORDERED: HEPARIN 10,000 UNITS/10 ML VIAL IR ONE (11:05)
[2019-05-20] MEDS ORDERED: GELATIN SPONGE SIZE 100 TP ONE (11:06)
[2019-05-20] MEDS ORDERED: PHENYLEPHRINE/NS 1,000 MCG/10 ML SYRINGE (OR USE) IV ONE (11:37)
[2019-05-20] MEDS ORDERED: PROTAMINE SULFATE 50 MG/5 ML INJ IV ONE (12:21)
--- NOTE | 2019-05-20 12:49 | Post Operative Note ---
Date of procedure: 05/20/19 Pre-op diagnosis: ESRD Post-op diagnosis: same Procedure: Right AV Graft Thrombectomy and Revision Anesthesia: GETA Surgeon: CAMI MOLINA Estimated blood loss: 50-100ml Pathology: none Condition: stable Disposition: PACU
--- NOTE | 2019-05-20 12:52 | Short Stay Summary ---
Short Stay Documentation Date of service: 05/20/19 - History H&P: obtained from office Past Medical History: ESRD, hypertension - Allergies and Medications Current Medications: Allergies tramadol Allergy (Verified 03/04/19 06:45) Itching Home Medications Medication Instructions Recorded Confirmed Last Taken Type Medroxyprogesterone Acetate 1 syr IM [id number] 01/11/19 05/20/19 05/17/19 History carvediloL [Coreg] 12.5 mg PO BID #60 04/14/19 05/20/19 05/20/19 09:30 Rx cloNIDine [Catapres] 0.1 mg PO TID PRN 04/22/19 05/20/19 05/19/19 History oxyCODONE /ACETAMINOPHEN [Percocet 1 tab PO Q6HR PRN 3 Days #12 tablet 04/22/19 05/20/19 05/19/19 Rx 5/325 mg] amLODIPine 10 mg PO BID 05/20/19 05/20/19 05/20/19 09:30 History levETIRAcetam [Keppra TAB] 500 mg PO 3XW 05/20/19 05/20/19 05/19/19 History Active Medications Fentanyl (Sublimaze) 50 mcg IV Q5MIN PRN PRN Reason: Pain , Severe (7-10) Cefazolin Sodium (Ancef/Sterile Water 2 Gm/20 Ml) 2 gm in 20 mls @ 80 mls/hr IV PREOP NR; Protocol Stop: 05/20/19 23:00 Sodium Chloride (Nacl 0.9% 1000 Ml) 1,000 mls @ 42 mls/hr IV DIRECT OLIVER Last Admin: 05/20/19 09:38 Dose: 42 mls/hr Documented by: Midazolam HCl (Versed) 2 mg IV PREOP NR Stop: 05/20/19 23:59 Last Admin: 05/20/19 09:40 Dose: 2 mg Documented by: Ondansetron HCl (Zofran) 4 mg IV ONCE PRN PRN Reason: Nausea And Vomiting - Physical exam General appearance: no acute distress Lungs: Normal air movement Heart: Regular rate Extremities: no ischemia - Hospital course Hospital course: the patient was taken to the operating room and had a right arm av graft thrombectomy and revision performed. please refer to the operative note concerning details of the procedure. the patient tolerated the procedure well and was discharged home in stable condition. - Disposition Condition at discharge: Stable Disposition: DC-01 TO HOME OR SELFCARE - Discharge Diagnoses (1) ESRD (end stage renal disease) on dialysis Status: Acute Short Stay Discharge Plan Follow up with: PRIMARY CAREMD [Primary Care Provider] - 7 Days
[2019-05-20] MEDS ORDERED: oxyCODONE /ACETAMINOPHEN 5-325MG TAB PO PRN ×2 (13:00→13:03)
[2019-05-20] MEDS: fentaNYL 100 MCG/2 ML INJ IV PRN ×2 (13:07→13:17)
--- NOTE | 2019-05-20 13:11 | Operative Report ---
STAFF SURGEON: Eric Henry M.D. PREOPERATIVE DIAGNOSIS: End-stage renal disease. POSTOPERATIVE DIAGNOSIS: End-stage renal disease. PROCEDURE PERFORMED: Right arm AV graft open thrombectomy and revision. COMPLICATIONS: None. ESTIMATED BLOOD LOSS: 50 mL. ANESTHESIA: General. INDICATIONS FOR PROCEDURE: This is a 43-year-old female who had a right arm AV graft that was working after initially its insertion; however, the patient was hospitalized at an outside institution in which the graft thrombosed during that hospital stay. An attempt was then made to perform a percutaneous thrombectomy, which was unsuccessful. The patient now returns for attempt at thrombectomy revision of her access. The patient was explained all the risks, benefits and alternatives of procedure, expressed understanding and wished to proceed. DESCRIPTION OF PROCEDURE: After appropriate consent was obtained, the patient was brought back to the operating room and placed on the operating table in supine position with the right arm extended. The patient was given appropriate medication and general anesthesia, had LMA placed without difficulty. Right arm was prepped and draped in the usual sterile fashion with ChloraPrep. Appropriate preoperative antibiotics were administered. Appropriate timeout was performed indicating correct patient, procedure, and site of procedure. I then began the operation by making a longitudinal incision in the axilla. This was carried through the subcutaneous tissue with a combination of blunt dissection and electrocautery. Dissection was continued through scar tissue from the previous operation and eventually was able to expose the axillary vein proximally in the axilla. This was mobilized and found to be suitable for venous outflow. We then proceeded to in the same incision, exposed the previous AV graft near the venous anastomosis. This was mobilized for an appropriate distance. The patient was then given 5000 units of unfractionated heparin. A transverse graftotomy was made and a #4 Fermin catheter was then placed towards the arterial anastomosis and proceeded to perform mechanical thrombectomy of the AV graft and this was done multiple times until a pulsatile flow was established in the AV graft. Once that was complete, vascular clamp was placed on the graft and then the rest of the graft was transected and the stump near the venous anastomosis was suture ligated with a 2-0 silk suture. Then, a 4-7 mm Propaten graft was then brought on the field, appropriately spatulated and then end-to-end anastomosis was performed with the existing graft with a running 5-0 Prolene suture. Once complete, flow was established through the new graft, which had a nice pulsatile flow. Graft was cut to an appropriate length and spatulated. Vascular clamps were placed on the axillary vein, both proximally and distally. A longitudinal venotomy was made with an 11 blade and extended with Claudio scissors. Then, an end-to-side anastomosis was performed with a running 5-0 Prolene suture. Once complete flow was reestablished through the graft, we had a nice palpable thrill which was confirmed by Doppler. We then looked to obtain hemostasis along our suture lines, which was obtained with hemostatic agents. Once we were satisfied with hemostasis, then proceeded to close the wound with a deep subcutaneous layer with interrupted 3-0 PDS. Skin was approximated with mike. Appropriate dressing was placed. The patient tolerated the procedure well, emerged from the general anesthesia, had LMA removed without difficulty and sent to recovery in stable condition. All sponge, instrument and needle counts were correct at completion of the operation. [facility]# [id number] [facility]
[2019-05-20] MEDS ORDERED: HEPARIN 10,000 UNIT/1 ML VIAL IV PRN (13:28)
[2019-05-20 13:47] VITALS: BP 134/85
== END 2019-05-20 14:20 | disposition home or self-care (01) ==
LOC: OR 09:05
PROVIDERS: ATTEND Surgery Vascular Surgery
DX: I12.0 Hypertensive chronic kidney disease with stage 5 chronic kidney disease or end stage renal disease (principal); N18.6 End stage renal disease; G43.909 Migraine, unspecified, not intractable, without status migrainosus; Z99.2 Dependence on renal dialysis; Z72.89 Other problems related to lifestyle; Z86.2 Personal history of diseases of the blood and blood-forming organs and certain disorders involving the immune mechanism; Z98.890 Other specified postprocedural states
CPT/HCPCS: 36415; 36833; 80048; 85025; A4649; C1757; C1768; J0690; J1100; J1644; J2250; J2370; J2405; J2704; J2720; J3010; J7030; J7040

== ENCOUNTER 2019-06-29 14:10 | Day surgery (SDC) | payer MEDICARE ==
[2019-06-29 14:49] VITALS: BP 124/89
[2019-06-29] MEDS ORDERED: ceFAZolin/STERILE WATER 2 GM/20 ML SYRINGE IV NR (15:00)
[2019-06-29 15:15] LABS: INR 1.21 (0.87-1.13)
[2019-06-29] MEDS ORDERED: LIDOCAINE (2%) 20 MG/1 ML VIAL 20 ML MDV INFILTRATI ONE (16:16)
[2019-06-29] MEDS ORDERED: HEPARIN 10,000 UNITS/10 ML VIAL ONE (16:16)
[2019-06-29] MEDS ORDERED: HEPARIN/NS 5000 UNIT/500ML 1,000 ML IR ONE (16:16)
[2019-06-29] MEDS ORDERED: SODIUM CHLORIDE 0.9% 250ML 250 ML ONE (16:16)
[2019-06-29] MEDS ORDERED: fentaNYL 100 MCG/2 ML INJ ONE (16:17)
[2019-06-29] MEDS ORDERED: MIDAZOLAM 2 MG/2 ML INJ ONE (16:17)
[2019-06-29] MEDS ORDERED: oxyCODONE /ACETAMINOPHEN 5-325MG TAB PO PRN (17:16)
--- NOTE | 2019-06-29 17:16 | Post Operative Note ---
Date of procedure: 06/29/19 Pre-op diagnosis: ESRD Post-op diagnosis: same Findings: 90% stenosis of the venous anastomosis with thrombosed av graft, no central venous stenosis, no stenosis noted at the arterial anastomosis, brachial, proximal ulnar and radial artery patent Procedure: 1. Ultrasound Access of Right arm AV Graft x 2 2. Right Arm Percutaneous AV Graft Thrombectomy 3. Right upper Extremity Diagnostic Angiogram 4. Monitored Conscious Sedation for 30 minutes Anesthesia: MAC, local Surgeon: CAMI MOLINA Estimated blood loss: minimal Pathology: none Condition: stable Disposition: PACU
--- NOTE | 2019-06-29 17:18 | Short Stay Summary ---
Short Stay Documentation Date of service: 06/29/19 - History H&P: obtained from office Past Medical History: ESRD, hypertension - Allergies and Medications Current Medications: Allergies tramadol Allergy (Verified 03/04/19 06:45) Itching Home Medications Medication Instructions Recorded Confirmed Last Taken Type Medroxyprogesterone Acetate 1 syr IM [id number] 01/11/19 06/29/19 05/17/19 History carvediloL [Coreg] 12.5 mg PO BID #60 04/14/19 06/29/19 06/29/19 Rx 12.5mg cloNIDine [Catapres] 0.1 mg PO TID PRN 04/22/19 06/29/19 05/19/19 History levETIRAcetam [Keppra TAB] 500 mg PO 3XW 05/20/19 06/29/19 06/25/19 History 500 mg oxyCODONE /ACETAMINOPHEN [Percocet 1 tab PO Q6HR PRN #24 tablet 05/20/19 06/29/19 06/28/19 Rx 5/325 mg] 1 Active Medications Cefazolin Sodium (Ancef/Sterile Water 2 Gm/20 Ml) 2 gm IV PREOP NR Stop: 06/29/19 23:00 - Physical exam General appearance: no acute distress Lungs: Normal air movement Heart: Regular rate Extremities: no ischemia - Hospital course Hospital course: the patient was taken to the director geophysical laboratory and had a right arm percutaneous av graft thrombectomy performed. please refer to the operative note concerning details of the procedure. the patient tolerated the procedure well and was discharged home in stable condition. - Disposition Condition at discharge: Stable Disposition: DC-01 TO HOME OR SELFCARE - Discharge Diagnoses (1) ESRD (end stage renal disease) on dialysis Status: Acute Short Stay Discharge Plan Follow up with: PRIMARY CARE, [Primary Care Provider] - 7 Days
--- NOTE | 2019-06-29 18:31 | Operative Report ---
STAFF SURGEON: Eric Henry M.D. PREOPERATIVE DIAGNOSES: 1. End-stage renal disease. 2. Thrombosed right arm arteriovenous graft. POSTOPERATIVE DIAGNOSES: 1. End-stage renal disease. 2. Thrombosed right arm arteriovenous graft. PROCEDURES PERFORMED: 1. Ultrasound access of right arm AV graft x 2. 2. Right arm percutaneous AV graft thrombectomy. 3. Right upper extremity diagnostic angiogram with first order catheter placement. 4. Monitor conscious sedation for approximately 30 minutes. COMPLICATIONS: None. ESTIMATED BLOOD LOSS: Less than 10 mL. ANESTHESIA: Local MAC. ANGIOGRAPHIC FINDINGS: There was a 90% stenosis of the venous anastomosis with a thrombosed AV graft. No central venous stenosis and no stenosis noted at the arterial anastomosis. The brachial proximal ulnar and proximal radial arteries were all widely patent. INDICATIONS FOR PROCEDURE: This is a 43-year-old female with end-stage renal disease, on hemodialysis via right arm AV graft, who recently presented to her dialysis center and found to have a thrombosed AV graft. Therefore, a vascular consultation was obtained in an attempt to salvage the patient's access. The patient was explained the risks, benefits and alternatives of procedure, expressed understanding and wished to proceed. DESCRIPTION OF PROCEDURE: After appropriate consent was obtained, the patient was brought back to the aquatic life laborer, placed on table in a supine position. The right arm was prepped and draped in the usual sterile fashion with ChloraPrep. Appropriate time-out performed indicating correct patient, procedure and site of procedure. We then began the intervention by obtaining percutaneous access of the right arm AV graft near the antecubital fossa towards the venous anastomosis under ultrasound guidance. Once we obtained access, needle was exchanged for a micropuncture sheath using Seldinger technique and the sheath was then upsized to a 7-[place]uv[place] sheath over a Bentson wire. Angled catheter and Bentson wire were then advanced into the central venous system. The wire was removed and contrast was infused through the catheter while retracting back toward the sheath, which demonstrated the findings noted above. With this, the Bentson wire was replaced back into the central venous system. The catheter was removed. The patient was given 5000 units of unfractionated heparin intravenously. We then proceeded to obtain a second access of the AV graft near the axilla towards the arterial anastomosis, again under ultrasound guidance. Once we obtained access with a micropuncture needle, the needle was exchanged for a micropuncture sheath and eventually upsized to a second 7-[place]uvian sheath over a stiff J wire. We then proceeded to advance the angled catheter over the stiff J-wire, the wire was removed and then a combination of the angled catheter and Glidewire were then advanced into the brachial artery. The wire was removed and a diagnostic angiogram of the right upper extremity was performed, which demonstrated the findings noted above. The Glidewire was replaced, the catheter was removed and then over the wire, #4 Fermin catheter was placed over the wire into the brachial artery. We then proceeded to perform mechanical thrombectomy of the AV graft, this was performed twice. After the second pass, a significant amount of thrombus was removed, which was discarded and a pulsatile flow was obtained with an AV graft. We then took 8 x 80 balloon and placed it through our initial sheath towards venous anastomosis. We then proceeded to balloon angioplasty of the venous anastomosis and macerate the rest of the thrombosed AV graft. Once that was complete, a completion angio was performed, which demonstrated some residual thrombus near the venous anastomosis. This was then balloon angioplasty once again. Then, a completion angio was performed, which demonstrated less than 10% residual stenosis with a widely patent AV graft. A Glidewire was then placed through our second sheath with angled catheter in towards the brachial artery. A Glidewire was removed and an evaluation of the arterial anastomosis was performed, which demonstrated a widely patent arterial anastomosis. With this, the catheter was removed over the Glidewire and a sheath was next removed after removing all our wires and sheath. The access sites were closed with a 3-0 nylon [id number] stitch. Appropriate dressing was placed. The patient tolerated the procedure well, emerged from the conscious sedation and sent to recovery in stable condition. JOB# [id number] [facility]
== END 2019-06-29 17:48 | disposition home or self-care (01) ==
LOC: CATHLABREC 14:10
PROVIDERS: ATTEND Surgery Vascular Surgery
DX: T85.868A Thrombosis due to other internal prosthetic devices, implants and grafts, initial encounter (principal); I12.0 Hypertensive chronic kidney disease with stage 5 chronic kidney disease or end stage renal disease; N18.6 End stage renal disease; G43.909 Migraine, unspecified, not intractable, without status migrainosus; Z72.89 Other problems related to lifestyle; Z79.899 Other long term (current) drug therapy; Z98.890 Other specified postprocedural states; Z86.2 Personal history of diseases of the blood and blood-forming organs and certain disorders involving the immune mechanism; Z88.8 Allergy status to other drugs, medicaments and biological substances; Y83.8 Other surgical procedures as the cause of abnormal reaction of the patient, or of later complication, without mention of misadventure at the time of the procedure; Y92.89 Other specified places as the place of occurrence of the external cause
CPT/HCPCS: 36905; 76937; 85610; 85730; 99156; 99157; C1725; C1757; C1769; C1894; J1644; J2250; J3010; J7050; 36415; Q9967